=== PATIENT | female | born 1955 | race Caucasian/White ===

== ENCOUNTER 2024-02-22 06:15 | Emergency (ER) | payer MEDICARE, SELFPAY ==
[2024-02-22 06:17] VITALS: BP 124/68
--- NOTE | 2024-02-22 07:16 | ED.GENMED ---
History of Present Illness
General
Chief Complaint: Post Operative Problem(s)
Time Seen by Provider: 02/22/24 07:04
History of Present Illness
History of Present Illness:
68 yo female presents to the Emergency Department for evaluation of intractable LLE/L knee pain. She is 2d s/p L TKA performed by Dr Stewart at [facility] in [place]. Has been taking 5-10mg of 'hydrocodone' every 4-6 hours without relief. No
fevers or chills.
Review of Systems
Review of Systems
Allergies reviewed?: Yes
All Other Systems: ROS reviewed and negative except as documented in HPI and ROS
Phy Exam
Physical Exam
Physical Exam:
GEN: Well appearing, NAD, WDWN
HEENT: Oral mucosa moist, no scleral icterus
Cardiac: Regular rate
Lung: No respiratory distress, no tachypnea
MSK: Moderate swelling of the L knee with mild medial joint erythema. Intact surgical dressing without bloody or purulent discharge. Dressing not taken down for infection control purposes. No LE edema. L DP pulse 2+. Exquisitely tender to light
palpation, unable to tolerate ROM.
Skin: Good color, no pallor or jaundice, no rashes
Neuro: AO x3, moves all extremities freely
Psych: Calm, cooperative
Course
Orders/Labs/Results
Orders:
Orders
02/22/24 07:15
Morphine Sulfate 6 mg IM NOW STA
Venous Doppler Lwr Ext Left [US Periph Venous LOWER Ext LT] Urgent
Comment:
Reason For Exam: L leg pain post knee replacement
02/22/24 09:26
HYDROmorphone [Dilaudid] 2 mg PO NOW STA
Vital Signs
Initial and Last Documented VS:
Initial Vital Signs
Pulse Resp BP Pulse Ox
110 26 124/68 98
02/22/24 06:17 02/22/24 06:17 02/22/24 06:17 02/22/24 06:17
Last Documented Vital Signs
Temp Pulse Resp BP Pulse Ox
98.7 F 98 20 128/65 99
02/22/24 10:38 02/22/24 10:38 02/22/24 10:38 02/22/24 10:38 02/22/24 10:38
MDM/Problems Addressed
MDM/Problems Addressed:
No evidence of DVT on ultrasound. Patient's onset of pain was quite acute after the surgery suggesting that this is all postoperative pain and intolerance to pain, no concern for infectious etiology. I did discuss the case with the patient's
surgeon who is no other immediate medical/orthopedic concerns. Patient is requesting benzodiazepines in addition to opiates for pain control. I had a lengthy discussion with her and her daughter regarding the risk of combining MILL SET UP depressants and
given her age will prescribe naloxone, her daughter plans to stay with her this weekend. Limited course of opiates will be given. She is also already on a steroid pack from her orthopedist. Will follow-up with Ortho next week
*Critical Care Note
Total Time (30-74mins, 75-104mins- exclusive of procedures): Not Applicable
ED Attending Note
-
Portions of this chart may have been created with voice recognition software.� Occasional wrong word or��sound alike� substitutions may have occurred due to the inherent limitations of voice recognition software.
Discharge Plan
Departure
Patient Disposition: Home (Routine Discharge)
Date of Disposition: 02/22/24
Time of Disposition: 10:27
Patient with high blood pressure during this ER visit?: No
Discharge Problem:
Post-operative pain
Instructions: Postoperative Pain (DC)
Prescriptions:
New
hydromorphone 4 mg tablet
4 mg PO Q4H PRN (Reason: Pain) Qty: 12 0RF
lorazepam 0.5 mg tablet
0.5 - 1 mg PO TID PRN (Reason: anxiety) Qty: 12 0RF
naloxone [Narcan] 4 mg/actuation spray,non-aerosol
4 mg intranasal DIRECTED Qty: 2 0RF
Referrals:
Azar Brown MD [Family Provider] -
Activity Restrictions/Additional Instructions:
PLEASE DO NOT TAKE THE LORAZEPAM AND HYDROMORPHONE TOGETHER, THIS CARRIES A VERY HIGH RISK OF SUPPRESSING YOUR BREATHING
We discussed the risk of these medications, and that there is no guarantee any combination of opioid medications will improve your symptoms
Ice the knee often
The naloxone prescription was given in the event that your family members feel you are too fatigued and your breathing is not adequate, if this is used, please call 911 immediately
While I understand you are in pain, please do not overuse the opioids you have been provided, as your age carries a high risk of breathing suppression from these medications
Follow up with Dr Booth's office on Sunday
Interventions
Interventions:
*Risk Screen - Suicide Last Done: 02/22/24 06:17
*General Assessment Last Done: 02/22/24 08:43
*Neglect/Abuse Screening Last Done: 02/22/24 06:17
*ED COVID-19 Vaccine History Last Done: 02/22/24 08:43
*Nursing Disposition Last Done: 02/22/24 10:45
ED-Skin Assessment Last Done: 02/22/24 08:43
Discharge Date and Time
Discharge Date/Time: 02/22/24 10:48
Print Language: KOREAN
[2024-02-22] MEDS: MORPHINE SULFATE 6 MG IM (07:23)
[2024-02-22] MEDS: DILAUDID 2 MG PO (09:39)
[2024-02-22 10:38] VITALS: BP 128/65
== END 2024-02-22 10:48 | disposition home or self-care (01) ==
LOC: EMR 06:15
PROVIDERS: EMERGENCY PHYSICIAN Emergency Medicine; FAMILY PHYSICIAN Family Medicine
DX: G89.18 Other acute postprocedural pain (principal); M25.562 Pain in left knee; R22.42 Localized swelling, mass and lump, left lower limb
CPT/HCPCS: 99284; 96372; 93971

== ENCOUNTER 2024-03-14 10:07 | Outpatient (RCR) | payer MEDICARE, SELFPAY | END 2024-03-14 23:59 | disposition home or self-care (01) | LOC: RPT 10:07 | PROVIDERS: ATTENDING PHYSICIAN Orthopaedic Surgery; FAMILY PHYSICIAN Family Medicine | DX: Z47.1 Aftercare following joint replacement surgery (principal); Z96.652 Presence of left artificial knee joint | CPT/HCPCS: 97110; 97162 ==

== ENCOUNTER → 2025-03-11 10:53 | Outpatient (REF) | payer MEDICARE, SELFPAY | LOC: RAD 10:53 | PROVIDERS: ATTENDING PHYSICIAN Orthopaedic Surgery; FAMILY PHYSICIAN Family Medicine | DX: Z96.652 Presence of left artificial knee joint (principal); M25.562 Pain in left knee | CPT/HCPCS: 76881 ==